=== PATIENT | female | born 2005 | race Caucasian/White ===

== ENCOUNTER 2024-11-30 22:59 | Emergency (ER) | payer MEDICAID, OTHER ==
[~2024-11-30] VITALS: Ht 172.7 cm; Wt 68.0 kg
[2024-11-30 23:25] VITALS: BP 134/87; TEMP 99.5; O2SAT 98
[2024-12-01 00:04] LABS: APPEARANCE,URINE CLEAR (CLEAR); BILIRUBIN,URINE NEGATIVE (NEGATIVE); BLOOD, URINE TRACE-INTA Ery/uL (NEGATIVE); COLOR,URINE YELLOW (YELLOW); KETONES,URINE NEGATIVE (NEGATIVE); LEUKOCYTE ESTERASE ,URINE NEGATIVE (NEGATIVE); NITRITE, URINE NEGATIVE (NEGATIVE); PROTEIN,URINE NEGATIVE (NEGATIVE); UGLUCOSE NEGATIVE (NEGATIVE); UROBILINOGEN,URINE 0.2 EU/dL (0.2)
[2024-12-01 00:06] LABS: PREGNANCY TEST URINE QUAL NEGATIVE (NEGATIVE)
[2024-12-01 00:13] LABS: BASOPHILS % (AUTO) 0.3 % (0.0-2.0); EOSINOPHILS % (AUTO) 0.1 % (0.0-6.0); HEMATOCRIT 34 % (33-45); HEMOGLOBIN 11.2 g/dL (11.5-14.8); LYMPHOCYTES # (AUTO) 0.7 K/uL (0.8-4.8); LYMPHOCYTES % (AUTO) 7.3 % (20.0-44.0); MEAN CORPUSCULAR HEMOGLOBIN 26 PG (26.0-33.0); MEAN CORPUSCULAR HGB CONC 33 g/dl (31.0-36.0); MEAN CORPUSCULAR VOLUME 79 fL (82-100); MONOCYTES # (AUTO) 0.5 K/uL (0.1-1.30); MONOCYTES % (AUTO) 4.7 % (2.0-12.0); NEUTROPHILS # (AUTO) 8.5 K/uL (1.8-8.9); NEUTROPHILS % (AUTO) 87.6 % (43.0-81.0); PLATELET COUNT (AUTO) 185 K/uL (150-450); RED BLOOD CELL COUNT(AUTO) 4.26 MIL/uL (4.0-5.2); WHITE BLOOD COUNT (AUTO) 9.7 K/uL (4.3-11.0)
[2024-12-01 00:26] LABS: POTASSIUM 3.1 mmol/L (3.5-5.1)
[2024-12-01 00:32] LABS: ALBUMIN 3.8 g/dL (3.4-5.0); BILIRUBIN,TOTAL 0.7 mg/dL (0.2-1.0); TOTAL PROTEIN, SERUM 7.4 g/dL (6.4-8.2)
[2024-12-01 00:56] LABS: ADD URINE CULTURE YES; BACTERIA,URINE Moderate /HPF (None Seen); WBC,URINE 0-2 /HPF (0-3)
[2024-12-01] MEDS ORDERED: CIPR-263 PO (01:28)
[2024-12-01] MEDS ORDERED: CEFTRIAXONE 1 G VIAL ONE (01:35)
[2024-12-01] MEDS ORDERED: POTASSIUM CHLORIDE 20 MEQ TAB.PRT.SR PO ONE (01:35)
[2024-12-01] MEDS ORDERED: LIDOCAINE 1% INJ 50 ML MDV IJ ONE (01:35)
[2024-12-01] MEDS: CEFTRIAXONE 1 G VIAL IM ONE (01:41)
[2024-12-01] MEDS: POTASSIUM CHLORIDE 20 MEQ TAB.PRT.SR PO ONE (01:41)
== END 2024-12-01 01:46 | disposition home or self-care (01) ==
LOC: ER 23:03
DX: N39.0 Urinary tract infection, site not specified (principal); R11.0 Nausea
CPT/HCPCS: 99283; 96372; 85025; 87040; 87086; 83605; 84703; 87186 ×2; 81001; 36415; 80053; J3490; J0696

== ENCOUNTER 2024-12-13 02:01 | Emergency (ER) | payer MEDICAID ==
[~2024-12-13] VITALS: Ht 172.7 cm; Wt 68.0 kg
[~2024-12-13 02:01] MED LIST: CIPR-263 PO
[2024-12-13] MEDS ORDERED: FOSF3PAC PO (02:20)
[2024-12-13 02:30] VITALS: BP 121/80; TEMP 98; O2SAT 98
== END 2024-12-13 02:31 | disposition home or self-care (01) ==
LOC: ER 02:07
DX: N39.0 Urinary tract infection, site not specified (principal); B96.1 Klebsiella pneumoniae [K. pneumoniae] as the cause of diseases classified elsewhere; Z16.12 Extended spectrum beta lactamase (ESBL) resistance